=== PATIENT | female | born 2000 | race Caucasian/White ===

== ENCOUNTER 2019-11-08 18:34 | Emergency (ER) | payer OTHER ==
--- NOTE | 2019-11-08 18:35 | UC ---
Cardiac HPI - HPI Summary HPI Summary: 19 yo female presents with chest pain. She tells me that she developed substernal chest pain 2 days ago that was mild, but worsened today. 8/10 pain described as a "concrete block on my chest". She feels short of breath like she cannot take a deep breath. She also has a headache. Pain is worse with deep breaths. Discomfort is present at all times. Nothing OTC for her symptoms. No injury. Denies fever, chills, cough, abdominal pain, n/v/d, dysuria. States no chance of today. Takes OBC. No recent travel. She smokes a vape daily. Admits she has a hx of anxiety, but this does not feel like anxiety. Fam hx of HTN, HLD, but no known ACS. - History of Current Complaint Stated Complaint: CHEST PAIN Time Seen by Provider: 11/08/19 18:35 Hx Obtained From: Patient Hx Last Menstrual Period: 04/10/14 Onset/Duration: Sudden Onset Initial Severity: Mild Current Severity: Moderate Pain Intensity: 8 - Allergy/Home Medications Allergies/Adverse Reactions: Allergies Allergy/AdvReac Type Severity Reaction Status Date / Time No Known Allergies Allergy Verified 11/08/19 18:55 Home Medications: Home Medications Birthcontrol Pill 1 tab PO DAILY 05/09/14 [History Confirmed 11/08/19] Ibuprofen TAB* [Advil TAB*] 800 mg PO ONCE PRN 11/08/19 [History Confirmed 11/07] PMH/Surg Hx/FS Hx/Imm Hx - Additional Past Medical History Additional PMH: None - Surgical History Surgical History: None - Family History Known Family History: Positive: Hypertension - Social History Lives: With Family Alcohol Use: None Substance Use Type: None Smoking Status (MU): Never Smoked Tobacco Review of Systems All Other Systems Reviewed And Are Negative: No Constitutional: Positive: Negative Skin: Positive: Negative Eyes: Positive: Negative ENT: Positive: Negative Respiratory: Positive: Shortness Of Breath Cardiovascular: Positive: Chest Pain Gastrointestinal: Positive: Negative Genitourinary: Positive: Negative Neurovascular: Positive: Negative Neurological/Mental Status: Positive: Negative Psychological: Positive: Negative Physical Exam - Summary Physical Exam Summary: GENERAL: NAD. WDWN. No pain distress. SKIN: No rashes, sores, or open wounds. HEENT: Head: AT/NC Eyes: PERRLA. EOM intact. Conjunctiva clear without inflammation or discharge. Ears: Hearing grossly normal. TMs intact, no bulging, erythema, or edema. Nose: Nasal mucosa pink and moist. NTTP maxillary and frontal sinus. Throat: Posterior oropharynx without exudates, erythema, or tonsillar enlargement. Uvula midline. NECK: Supple. Nontender. No lymphadenopathy. CHEST: CTAB. No r/r/w. No accessory muscle use. Breathing comfortably and in no distress. CV: RRR. Pulses intact. Brisk cap refill. ABDOMEN: Soft. NTTP. No distention or guarding., No organomegaly. No CVA tenderness. Bowel sounds present MSK: FROM and 5/5 strength throughout. No edema. NEURO: Alert. PSYCH: Age appropriate behavior. Triage Information Reviewed: Yes Vital Signs: Vital Signs: Temp Pulse Resp BP Pulse Ox 98.3 F 84 16 118/82 100 11/08/19 18:53 11/08/19 18:53 11/08/19 18:53 11/08/19 18:53 11/08/19 18:53 Vital Signs Reviewed: Yes Diagnostics - EKG Summary of EKG Findings: 72bpm NSR. No STEMI. Read by Dr. Dalton. - Assessment/Plan Course Of Treatment: EKG as above. SOB, worsening chest pain, and OBC concerning for PE vs ACS/dysrhythmia Pt is stable at this time. Recommend going to the ED for further evaluation - she is agreeable to this and will go now. - Clinical Impression Provider Diagnosis: Chest pain, Shortness of breath Discharge ED - Sign-Out/Discharge Documenting (check all that apply): Patient Departure All imaging exams completed and their final reports reviewed: No Studies - Discharge Plan Condition: Stable Disposition: HOME-RECOMMEND TO ED Referrals: Arnoldo Ferrari MD [Primary Care Provider] - Additional Instructions: Please go to the ER for further evaluation of your chest pain and shortness of breath - Billing Disposition and Condition Condition: STABLE Disposition: Home-Recommend to ED
--- OUTSIDE RECORDS SUMMARY | 2019-11-08 18:40 | XMS REPORT | Continuity of Care Document ---
:2000 External Reference #:[id number] Author Name Bony Robles M.D. Address [address] [facility] [address] [place] [address] Care Team Providers Name Role Phone Geronimo West Care Team Information Paint Stripper [phone] Problems Active Problems Provider Date Urgent desire to urinate Bony Robles M.D. Onset: 09/26/2019 Mixed urinary incontinence Bony Robles M.D. Onset: 07/25/2019 Overactive bladder Bony Robles M.D. Onset: 06/20/2019 Social History Type Date Description Comments Sex Unknown Tobacco Use Start: Unknown Patient has never smoked Smoking Status Reviewed: 09/15/19 Patient has never smoked Allergies, Adverse Reactions, Alerts Description No Known Drug Allergies Medications Active Medications SIG Qnty Indications Ordering Provider Date Buspirone HCL Take 1 Tablet By Unknown 15mg Mouth Twice Daily Tablets For Anxiety Tri-Sprintec Take 1 Tablet By Unknown Mouth Once Daily 0.18/0.215/0.25 mg-35 mcg Tablets History Medications Myrbetriq 1 by mouth every 14tabs Bony Robles, 06/20/2019 - 50mg day M.D. 09/14/2019 Tablets ER 24HR Immunizations Description No Information Available Vital Signs Date Vital Result Comment 09/26/2019 1:37pm BP Systolic 130 mmHg BP Diastolic 82 mmHg Body Temperature 98.0 F Heart Rate 72 /min Respiratory Rate 15 /min Height 65 inches 5'5" Weight 157.38 lb Pain Level 5 Lower abd BMI (Body Mass Index) 26.2 kg/m2 BSA (Body Surface Area) 1.79 m2 [place] body weight in kilograms 57 kg O2 % BldC Oximetry 100 % 09/14/2019 11:16am BP Systolic 120 mmHg BP Diastolic 78 mmHg Body Temperature 98.0 F Heart Rate 65 /min Respiratory Rate 19 /min Height 65 inches 5'5" Weight 153.00 lb Pain Level 0 BMI (Body Mass Index) 25.5 kg/m2 BSA (Body Surface Area) 1.77 m2 [place] body weight in kilograms 57 kg O2 % BldC Oximetry 100 % Results Test Acquired Date Facility Test Result H/L Range Note Urine Dipstick 09/26/2019 [facility] Ua Color Yellow Yellow Ua Clarity Clear Clear Ua Leuko Negative Negative Ua Nitrite Negative Negative Ua Urobilinogen 0.2 0.2 - 1.0 E.U./dL Ua Protein Negative Negative Ua PH 6.0 Low 6.5-7.5 Ua Blood Negative Negative Ua Specific [place] 1.025 1.010-1.030 Ua Ketones Negative Negative Ua Bilirubin Negative Negative Ua Glucose Negative Negative Ua RFX Micro & Culture 06/20/2019 [facility] Urine Color Yellow Yellow 1 II [address] [place] [id number] [phone] Urine Clarity Clear Clear Urine Glucose - Dipstick NEGATIVE mg/dL Negative Urine Bilirubin - Dipstick NEGATIVE Negative Urine Ketone NEGATIVE mg/dL Negative Urine Specific [place] 1.024 Normal 1.010-1.030 Urine Blood NEGATIVE Negative Urine PH 6.0 Low 6.5-7.5 Urine Protein - Dipstick NEGATIVE mg/dL Negative Urine Urobilinogen - Dipstick < 2.0 mg/dL < 2.0 Urine Nitrite - Dipstick NEGATIVE Negative Urine Leuk Esterase NEGATIVE Negative Urine Dipstick 06/20/2019 [facility] Inhouse Ua Color Yellow Yellow Ua Clarity Clear Clear Ua Leuko Negative Negative Ua Nitrite Negative Negative Ua Urobilinogen 0.2 0.2 - 1.0 E.U./dL Ua Protein Negative Negative Ua PH 6.0 Low 6.5-7.5 Ua Blood Negative Negative Ua Specific [place] 1.025 1.010-1.030 Ua Ketones Negative Negative Ua Bilirubin Negative Negative Ua Glucose Negative Negative 1 N39.0 Procedures Date Code Description Status 09/14/2019 70448 voiding pressure study vp legal affairs intra abdominal voiding pressure Completed ap 09/14/2019 60506 emg studies of urethral sphincter, other than needle, any Completed tech 09/14/2019 21037 complex uroflowmetry electronic Completed 09/14/2019 65778 Cystometrogram complex w/ voiding and urethral pressure Completed studies 06/20/2019 82048 Measurement Post Voiding Residual Urine By Completed Ultrasound,Non-Imaging Medical Devices Description No Information Available Encounters Type Date Location Provider Dx Diagnosis Office Visit 09/26/2019 1:45p Urology Bony Robles N39.46 Mixed incontinence M.DMicheal R39.15 Urgency of urination Office Visit 07/25/2019 4:00p Urology Bony Robles N39.[address]DMicheal Office Visit 06/20/2019 2:30p Urology Bony Robles N32.81 Overactive bladder JannaDMicheal Assessments Date Code Description Provider 09/26/2019 N39.46 Mixed incontinence Bony Robles M.D. 09/26/2019 R39.15 Urgency of urination Bony Robles M.D. 09/14/2019 R39.15 Urgency of urination Bony Robles M.D. 09/14/2019 R35.1 Nocturia Bony Robles M.D. 07/25/2019 N39.46 Mixed incontinence Bony Robles M.D. 06/20/2019 N32.81 Overactive bladder Bony Robles M.D. Plan of Treatment 09/26/2019 - Bony Robles M.D.N39.46 Mixed incontinenceComments:Patient reports mixed incontinence. Previous pelvic exam did not show evidence of stress incontinence and urodynamics did not show evidence of stress or urge incontinence. We'll refer patient to [facility] urology for further management and evaluation.Referral:Albania Miranda MD, Surgery,[id number] Urgency of urinationComments:Patient did try Myrbetriq and noticed no improvement. Urodynamics did not show evidence of bladder overactivity. Functional Status Description No Information Available Mental Status Description No Information Available Referrals Refer to Reason for Referral Status Appt Date Albania Miranda MD Created [address] [place] [id number] [phone]
[2019-11-08 18:55] VITALS: BP 118/82
== END 2019-11-08 19:08 | disposition home health service (06) ==
LOC: UCEAST 18:34
DX: R07.9 Chest pain, unspecified (principal); R06.02 Shortness of breath
CPT/HCPCS: 99212; G0463

== ENCOUNTER 2019-11-08 19:25 | Emergency (ER) | payer OTHER ==
--- NOTE | 2019-11-08 20:23 | ED ---
HPI Chest Pain - HPI Summary HPI Summary: 19-year-old female with no significant past medical history presents to the emergency department today complaining of 8 out of 10 midsternal chest pressure which has been occurring constantly for 3 days. Patient states she was at rest when the pain began and her pain is made worse while laying flat. Patient denies any recent trauma. Patient denies recent surgery, long distance travel, history of blood clots, patient is on oral contraceptive pills. Patient denies associated symptoms such as shortness of breath, abdominal pain, lightheadedness , jaw pain, arm pain, diaphoresis. Patient denies increase in chest pain with exertion. Patient endorses reproducible chest pain with palpation. Patient is otherwise well and denies fever, abdominal pain, since breath, pain with urination, rash, nausea, vomiting, diarrhea. Patient endorses "vaping". - History of Current Complaint Chief Complaint: EDChestWallPain Time Seen by Provider: 11/08/19 20:12 Hx Obtained From: Patient Hx Last Menstrual Period: 04/10/14 Onset/Duration: Started Days Ago Timing: Constant Initial Severity: Moderate Current Severity: Severe Pain Intensity: 8 Pain Scale Used: 0-10 Numeric Chest Pain Location: Mid Sternal Chest Pain Radiates: No Character: Pressure/Squeezing Aggravating Factor(s): Position Alleviating Factor(s): Position Associated Signs and Symptoms: Positive: Chest Pain. Negative: Shortness of Breath, Fever, Nausea, Wheezing - Allergy/Home Medications Allergies/Adverse Reactions: Allergies Allergy/AdvReac Type Severity Reaction Status Date / Time No Known Allergies Allergy Verified 11/08/19 19:38 Home Medications: Home Medications Escitalopram * [Lexapro 10 mg (NF)] 10 mg PO DAILY 11/08/19 [History Confirmed 11/08/19] Ibuprofen TAB* [Advil TAB*] 800 mg PO Q6HR PRN 11/08/19 [History Confirmed 11/07] Norethindrone-Ethinyl Estrad [Aranelle] 1 tab PO DAILY 11/08/19 [History Confirmed 11/08/19] busPIRone TAB* [Buspar TAB *] 15 mg PO BID PRN 11/08/19 [History Confirmed 11/07] PMH/Surg Hx/FS Hx/Imm Hx Endocrine/Hematology History: Denies: Hx Diabetes, Hx Thyroid Disease Cardiovascular History: Denies: Hx Hypertension, Hx Pacemaker/ICD Respiratory History: Denies: Hx Asthma, Hx Chronic Obstructive Pulmonary Disease (COPD) GI History: Denies: Hx Ulcer Sensory History: Denies: Hx Hearing Aid Psychiatric History: Denies: Hx Panic Disorder Infectious Disease History: No Infectious Disease History: Denies: Hx Hepatitis, Hx Human Immunodeficiency Virus (HIV), Traveled Outside the [place] in Last 30 Days - Family History Known Family History: Positive: Hypertension - Social History Alcohol Use: None Substance Use Type: Reports: None Smoking Status (MU): Never Smoked Tobacco Type: eCigarettes Amount Used/How Often: vapes occassionally Review of Systems Constitutional: Negative Eyes: Negative ENT: Negative Positive: Chest Pain. Negative: Palpitations Respiratory: Negative Gastrointestinal: Negative Genitourinary: Negative Musculoskeletal: Negative Skin: Negative Neurological/Mental Status: Negative Psychological: Normal All Other Systems Reviewed And Are Negative: Yes Physical Exam - Summary Physical Exam Summary: Patient is in no acute distress. No evidence of trauma, ecchymosis, erythema, edema to the chest wall. Patient has pain with palpation of the sternum. Normal S1 and S2 regular rate and rhythm. Triage Information Reviewed: Yes Vital Signs On Initial Exam: Initial Vitals Temp Pulse Resp BP Pulse Ox 97.3 F 78 16 124/80 97 11/08/19 19:29 11/08/19 19:29 11/08/19 19:29 11/08/19 19:29 11/08/19 19:29 Vital Signs Reviewed: Yes Appearance: Positive: Well-Appearing, No Pain Distress, Well-Nourished Skin: Positive: Warm, Skin Color Reflects Adequate Perfusion Eyes: Positive: EOMI, REBA ENT: Positive: Hearing grossly normal Respiratory/Lung Sounds: Positive: Clear to Auscultation, Breath Sounds Present Cardiovascular: Positive: RRR, S1, S2 Abdomen Description: Positive: Nontender, Soft Bowel Sounds: Positive: Present Musculoskeletal: Positive: Strength/ROM Intact Neurological: Positive: Sensory/Motor Intact, Alert, Oriented to Person Place, Time, Facial Symmetry, Speech Normal Psychiatric: Positive: Normal, Affect/Mood Appropriate AVPU Assessment: Alert Procedures - Sedation Patient Received Moderate/Deep Sedation with Procedure: No Diagnostics - Vital Signs Vital Signs Temp Pulse Resp BP Pulse Ox 11/08/19 19:29 97.3 F 78 16 124/80 97 - Laboratory Result Diagrams: 11/08/19 20:20 11/08/19 20:20 Lab Statement: Any lab studies that have been ordered have been reviewed, and results considered in the medical decision making process. Chest Pain Course/Dx - Course Course Of Treatment: Patient was evaluated in the emergency department today for chest pain. Vitals noted and stable. EKG was done promptly which shows no evidence of STEMI. Normal sinus rhythm at a rate of 72 bpm. Normal QT, VT interval. Normal axis. No prior EKGs available for comparison. Chest x-ray shows no evidence of broken ribs or obvious pneumonia. Laboratory studies show no significant abnormalities with no leukocytosis, anemia or elevated troponin. Troponin 0.00. Serial troponins seemed unnecessary as patient has been symptomatic for 3 days. HEART Score:1 PERC positive, Wells score: 0. It appears patient is not suffering from any acute medical problem requiring intervention at this time. Patient discharged with outpatient follow-up. - Chest Pain Differential Diagnosis/HQI/PQRI: Acute [place], Angina, Chest Wall, Pulmonary Embolism - Diagnoses Provider Diagnoses: Atypical chest pain Discharge ED - Sign-Out/Discharge Documenting (check all that apply): Patient Departure - Discharge Plan Condition: Stable Disposition: HOME Patient Education Materials: Chest Pain (ED) Referrals: Geronimo West DO [Primary Care Provider] - 3 Days Additional Instructions: You were seen in the emergency department today due to chest pain. Cardiac workup was done today including an EKG and blood work which found no evidence of acute pathology requiring intervention at this time. Although I am uncertain what is causing your symptoms cardiac origin cannot be ruled out. Please follow- up with your primary care provider or joggle press operator in 3 days for further evaluation and management. Please return to this emergency Department immediately if you develop any new or worsening symptoms. - Billing Disposition and Condition Condition: STABLE Disposition: Home
[2019-11-08 20:37] LABS: ABS Eosinophils 0.1 10^3/ul (0-0.6); ABS Lymphocytes 2.2 10^3/ul (1.0-4.8); ABS Monocytes 0.7 10^3/ul (0-0.8); ABS Neutrophils 4.2 10^3/ul (1.5-7.7); Eosinophil % 0.8 %; Hematocrit 38 % (35-47); Lymphocyte % 30.5 %; Mean Corpuscular HGB Conc 34 g/dL (31-36); Mean Corpuscular Hemoglobin 30 pg (27-31); Mean Corpuscular Volume 87 fL (80-97); Mean Platelet Volume 7.9 fL (7.4-10.4); Nucleated Red Blood Cells % 0.1; Platelet Count 245 10^3/uL (150-450); Red Blood Count 4.38 10^6 /uL (3.70-4.87); Red Cell Distribution Width 13 % (10-15); White Blood Count 7.2 10^3/uL (3.5-10.8)
[2019-11-08 20:53] LABS: ALT 9 U/L (7-52); AST 12 U/L (13-39); Albumin 4.1 g/dL (3.2-5.2); Albumin/Globulin Ratio 1.3 (1-3); Alkaline Phosphatase 46 U/L (34-104); Anion Gap 6 mmol/L (2-11); BUN/Creatinine Ratio 25.5 (8-20); Blood Urea Nitrogen 14 mg/dL (6-24); CO2 Carbon Dioxide 27 mmol/L (22-32); Calcium 9.6 mg/dL (8.6-10.3); Chloride 103 mmol/L (101-111); EGFR African American 170.5 (>60); EGFR Non-African American 140.9 (>60); Globulin 3.2 g/dL (2-4); Glucose 95 mg/dL (70-100); Potassium 3.6 mmol/L (3.5-5.0); Sodium 136 mmol/L (135-145); Total Protein 7.3 g/dL (6.4-8.9)
[2019-11-08 20:59] LABS: HCG Pregnancy < 0.60 mIU/mL
[2019-11-08 23:20] VITALS: BP 104/64
== END 2019-11-08 21:45 | disposition home or self-care (01) ==
LOC: ED 19:25
DX: R07.89 Other chest pain (principal)
CPT/HCPCS: 36415; 71046; 80053; 84484; 84702; 85025; 93005; 99282